=== PATIENT | male | born 1990 | race African-American/Black ===

== ENCOUNTER 2016-10-23 18:04 | Emergency (ER) | payer MEDICAID, OTHER ==
[~2016-10-23] VITALS: Ht 165.1 cm; Wt 79.5 kg
[2016-10-23 18:47] VITALS: Ht 165.1 cm; Wt 79.5 kg
[2016-10-23] MEDS ORDERED: ONDANSETRON (ODT) 4 MG TAB ODT STA (21:02)
--- NOTE | 2016-10-23 21:12 | ERD ---
ER Documentation Chief Complaint Date/Time DATE: 10/23/16 TIME: 21:10 Chief Complaint AP X1 DAY +NAUSEA, DENIES VOMITING, DIARRHEA. HPI This a 25-year-old male who presents the emergency department today with his fiance complaining of abdominal pain. Patient states he was at work when his pain started. 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 States he has not taken any medication for the pain. States he has had some nausea but no vomiting. Harley states that her daughter was sick and thinks that he "may have passed on her sickness to him" denies any sore throat, testicular pain, diarrhea. ROS All systems reviewed and are negative except as per history of present illness. Medications Home Meds Active Scripts Ibuprofen* (Motrin*) 600 Mg Tab, 600 MG PO Q6, #30 TAB Prov:LINDA PATEL PA-C 10/23/16 Hydrocodone/Acetaminophen ([place] 5-325 Tablet) 1 Each Tablet, 1 TAB PO Q6H Y for PAIN, #10 TAB Prov:LINDA PATEL PA-C 10/23/16 Ondansetron Hcl* (Zofran*) 4 Mg Tablet, 4 MG PO Q6H for NAUSEA AND/OR VOMITING, #30 TAB Prov:LINDA PATEL PA-C 10/23/16 Physical Exam Vitals Vital Signs Date Time Temp Pulse Resp B/P Pulse Ox O2 Delivery O2 Flow Rate FiO2 10/23/16 18:47 97.8 59 18 129/75 100 Physical Exam Const: No acute distress Head: Atraumatic Eyes: Normal Conjunctiva ENT: Normal External Ears, Nose and Mouth. Neck: Full range of motion..~ No meningismus. Resp: Clear to auscultation bilaterally Cardio: Regular rate and rhythm, no murmurs Abd: Soft, diffuse abdominal pain non distended. Normal bowel sounds. No specific tenderness at McBurney Skin: No petechiae or rashes Back: No midline or flank tenderness Ext: No cyanosis, or edema Neur: Awake and alert Psych: Normal Mood and Affect Result Diagram: 10/23/16211910/23/162119 Results 24 hrs Laboratory Tests Test 10/23/16 21:20 10/23/16 21:56 White Blood Count 7.410^3/ul Red Blood Count 5.1110^6/ul Hemoglobin 15.8g/dl Hematocrit 46.5% Mean Corpuscular Volume 91.0fl Mean Corpuscular Hemoglobin 30.9pg Mean Corpuscular Hemoglobin Concent 34.0g/dl Red Cell Distribution Width 12.9% Platelet Count 47050^3/UL Mean Platelet Volume 9.1fl Neutrophils % 87.5% Lymphocytes % 10.7% Monocytes % 1.6% Eosinophils % 0.0% Basophils % 0.1% Nucleated Red Blood Cells % 0.0/100WBC Neutrophils # 6.510^3/ul Lymphocytes # 0.810^3/ul Monocytes # 0.110^3/ul Eosinophils # 0.010^3/ul Basophils # 0.010^3/ul Nucleated Red Blood Cells # 0.010^3/ul Sodium Level 142mmol/L Potassium Level 4.8mmol/L Chloride Level 101mmol/L Carbon Dioxide Level 27mmol/L Anion Gap 19 Blood Urea Nitrogen 19mg/dl Creatinine 1.18mg/dl Glucose Level 124mg/dl Calcium Level 10.6mg/dl Total Bilirubin 1.0mg/dl Direct Bilirubin 0.00mg/dl Indirect Bilirubin 1.0mg/dl Aspartate Amino Transf (AST/SGOT) 41IU/L Alanine Aminotransferase (ALT/SGPT) 45IU/L Alkaline Phosphatase 99IU/L Total Protein 8.8g/dl Albumin 5.3g/dl Globulin 3.50g/dl Albumin/Globulin Ratio 1.51 Lipase 61U/L Bedside Urine pH (LAB) 5.5 Bedside Urine Protein (LAB) 1+ Bedside Urine Glucose (UA) Negative Bedside Urine Ketones (LAB) 3+ Bedside Urine Blood 1+ Bedside Urine Nitrite (LAB) Negative Bedside Urine Leukocyte Esterase (L Negative Current Medications Medications (Trade) Dose Ordered Sig/Thiago Route PRN Reason Start Time Stop Time Status Last Admin Dose Admin Acetaminophen/ Hydrocodone Bitart ([place] (5/325)) 1 tab ONCE ONCE PO 10/23/16 21:30 10/23/16 21:31 DC 10/23/16 21:24 Ondansetron HCl (Zofran Odt) 4 mg ONCE STAT ODT 10/23/16 21:02 10/23/16 21:04 DC 10/23/16 21:23 DIAGNOSTIC IMAGING REPORT Patient: DIDIER GUILLORY : 1990 Age: 25 Sex: M MR #: [id number] [facility] #: [id number] DOS: 10/23/162101 Ordering MD: LINDA PATEL PA-C Location: [facility] Room/Bed: PROCEDURE: CT scan of the abdomen and pelvis without IV contrast. CLINICAL INDICATION: Lower abdominal pain. TECHNIQUE: Thin section axial, coronal and sagittal images were performed through the abdomen and pelvis without contrast. Radiation Dose: CTDI: 7.4 and DLP: 364 One or more of the following dose reduction techniques were used: - Automated exposure control. - Adjustment of the mA and/or kV according to patient size. Use of iterative reconstruction technique. COMPARISON: Chest x-ray 07/28/2016 06:18 a.m. FINDINGS: Soft tissues: Normal.. Lungs and pleural spaces: The lungs are hyperinflated. The pulmonary vasculature is normal. No pulmonary nodule or infiltrate is identified. No pleural effusion is present. Heart: Normal. The liver, common bile duct and gallbladder: The liver is mildly enlarged measuring 15.6 cm AP. No hepatic mass or intrahepatic biliary ductal dilatation is identified. The gallbladder and gallbladder wall are normal. Gastrointestinal: The stomach is distended with fluid and particulate matter. Small bowel loops have a normal caliber. There is scattered fecal material in the colon. The appendix is not visualized. Evaluation of the bowel is limited due to lack of body fat, oral contrast and IV contrast. Pancreas: Normal. Kidneys, bladder and adrenal glands : Normal. Spleen: Normal. Lymph nodes: Normal. Reproductive system and pelvis : Normal. Bony elements: There are osteophytes in the lower thoracic spine. There is disk space narrowing at T12-L1 with large ventral osteophyte off the inferior endplate of T12. There is dorsal disk space narrowing at L4-5 with a 5.5 mm AP central disk protrusion. There is dorsal disk space narrowing at L5-S1. There is a mild levoscoliosis of the thoracolumbar junction. Vasculature: Normal. IMPRESSION: 1. Liver measures 15.6 cm AP. 2. Mild levoscoliosis of the thoracolumbar junction with disk space narrowing associated with a central disk protrusion measuring 4.6 mm AP at L4-5. 3. Somewhat limited evaluation due to lack of body fat as well as oral and IV contrast. 4. Otherwise, unremarkable CT scan of the abdomen pelvis without IV contrast. RPTAT:AAJJ Fran Gregorio Physician Date Time Electronically viewed and signed by Fran Gregorio Physician on 10/23/2016 21:49 JM/ CC: LINDA PATEL PA-C Procedures/MDM This a 25-year-old male who presents to the emergency department today complaining of abdominal pain and nausea. On physical exam patient has diffuse abdominal pain and was unable to localize where the majority of his pain was. This is the patient's first visit to the emergency department. I did obtain laboratory work as well as imaging. Laboratory work shows no elevated white blood cell count. He is not anemic. Platelets are within normal limits. Electrolytes are within normal limits. Glucose within normal limits. Liver function is within normal limits. Lipase within normal limits. UA shows 1+ blood. Negative leukocyte esterase negative nitrite CT abdomen pelvis noncontrast shows the liver measuring 15.6 cm. Otherwise unremarkable gallbladder and common bile duct. There is mild levoscoliosis of the thoracic lumbar junction with disc space narrowing and central disc protrusion at L4 and 5. Otherwise unremarkable CT scan. Stomach is distended with fluid and particulate matter. There is scattered fecal material in the colon. The appendix is not visualized. Patient has abdominal pain of uncertain etiology. I discussed the patient with Dr. Cotton, and he recommended that the urine be sent for culture and the patient's positive hematuria. I also sent the urine for gonorrhea and chlamydia. Low suspicion for acute surgical abdomen at this time. Patient was given [place] and Zofran here in the emergency department and reported feeling better.. Patient given a prescription for short course of [place] and Zofran and Motrin for home At this time the patient is stable for discharge and outpatient management. Patient should follow up with their PCP in the next 1-2 days. They may return to the emergency department sooner for any persistent or worsening of symptoms. Patient understood and agreed with the plan. Departure Diagnosis: Primary Impression: Abdominal pain Abdominal location: generalized Qualified Code: R10.84 - Generalized abdominal pain Condition: Fair LINDA PATEL PA-C October 23, 2016 21:12
[2016-10-23] MEDS ORDERED: HYDROCODONE/APAP (5/325) TAB PO ONE (21:30)
[2016-10-23 21:37] LABS: ADD SCAN DIFF NO
[2016-10-23 21:39] LABS: BASOPHILS % 0.1 % (0.0-2.0); HEMATOCRIT 46.5 % (42.0-52.0); HEMOGLOBIN 15.8 g/dl (14.0-18.0); LYMPHOCYTES # 0.8 10^3/ul (0.8-2.9); LYMPHOCYTES % 10.7 % (15.0-51.0); MEAN CORPUSCULAR HEMOGLOBIN 30.9 pg (29.0-33.0); MEAN PLATELET VOLUME 9.1 fl (7.4-10.4); MONOCYTE # 0.1 10^3/ul (0.3-0.9); MONOCYTES % 1.6 % (0.0-11.0); NEUTROPHIL # 6.5 10^3/ul (1.6-7.5); NEUTROPHILS % 87.5 % (39.0-77.0); PLATELET COUNT 335 10^3/UL (140-415); RED BLOOD COUNT 5.11 10^6/ul (4.70-6.10); RED CELL DISTRIBUTION WIDTH 12.9 % (11.5-14.5); WHITE BLOOD COUNT 7.4 10^3/ul (4.8-10.8)
[2016-10-23 21:50] LABS: ALBUMIN 5.3 g/dl (3.3-4.9)
--- NOTE | 2016-10-23 21:50 | RADRPT ---
PROCEDURE: CT scan of the abdomen and pelvis without IV contrast. CLINICAL INDICATION: Lower abdominal pain. TECHNIQUE: Thin section axial, coronal and sagittal images were performed through the abdomen and pelvis without contrast. Radiation Dose: CTDI: 7.4 and DLP: 364 One or more of the following dose reduction techniques were used: - Automated exposure control. - Adjustment of the mA and/or kV according to patient size. Use of iterative reconstruction technique. COMPARISON: Chest x-ray 07/28/2016 06:18 a.m. FINDINGS: Soft tissues: Normal.. Lungs and pleural spaces: The lungs are hyperinflated. The pulmonary vasculature is normal. No pul monary nodule or infiltrate is identified. No pleural effusion is present. Heart: Normal. The liver, common bile duct and gallbladder: The liver is mildly enlarged measuring 15.6 cm AP. No hepatic mass or intrahepatic biliary ductal dilatation is identified. The gallbladder and gallbladd er wall are normal. Gastrointestinal: The stomach is distended with fluid and particulate matter. Small bowel loops have a normal caliber . There is scattered fecal material in the colon. The appendix is not visualized. Evaluation of the bowel is limited due to lack of body fat, oral contrast and IV contrast. Pancreas: Normal. Kidneys, bladder and adrenal glands : Normal. Spleen: Normal. Lymph nodes: Normal. Reproductive system and pelvis : Normal. Bony elements: There are osteophytes in the lower thoracic spine. There is disk space narrowing at T12-L1 with large ventral osteophyte off the inferior endplate of T12. There is dorsal disk space n arrowing at L4-5 with a 5.5 mm AP central disk protrusion. There is dorsal disk space narrowing at L5-S1. There is a mild levoscoliosis of the thoracolumbar junction. Vasculature: Normal. IMPRESSION: 1. Liver measures 15.6 cm AP. 2. Mild levoscoliosis of the thoracolumbar junction with disk space narrowing associated with a nikita tral disk protrusion measuring 4.6 mm AP at L4-5. 3. Somewhat limited evaluation due to lack of body fat as well as oral and IV contrast. 4. Otherwise, unremarkable CT scan of the abdomen pelvis without IV contrast. RPTAT:AAJJ Fran Darline, Physician Date Time Electronically viewed and signed by Fran Gregorio Physician on 10/23/2016 21:49 JM/
[2016-10-23 21:51] LABS: POTASSIUM 4.8 mmol/L (3.5-5.1)
[2016-10-23 21:53] LABS: ALBUMIN/GLOBULIN RATIO 1.51; CREATININE 1.18 mg/dl (0.61-1.24); TOTAL PROTEIN 8.8 g/dl (6.1-8.1)
[2016-10-23 21:54] LABS: CALCIUM 10.6 mg/dl (8.4-10.2)
[2016-10-23 21:56] LABS: URINE BLOOD (Dip) POC 1+ (NEGATIVE)
[2016-10-23] MEDS ORDERED: HYDR-906 PO (22:48)
[2016-10-23] MEDS ORDERED: ONDA4TAB8 PO (22:48)
[2016-10-23] MEDS ORDERED: IBUP-1542 PO (22:49)
[2016-10-23 23:04] VITALS: BP 134/62; PULSE 55; RESP 16
== END 2016-10-23 23:05 | disposition home or self-care (01) ==
LOC: FTE 18:04
DX: R10.84 Generalized abdominal pain (principal); R11.0 Nausea
CPT/HCPCS: 74176; 80053; 81003; 83690; 85025; Z7610

== ENCOUNTER 2016-10-27 04:23 | Emergency (ER) | payer MEDICAID ==
[~2016-10-27] VITALS: Ht 175.3 cm; Wt 77.3 kg
[~2016-10-27 04:23] MED LIST: HYDR-906 PO; IBUP-1542 PO; ONDA4TAB8 PO
[2016-10-27 04:30] VITALS: Ht 175.3 cm; Wt 77.3 kg
[2016-10-27] MEDS ORDERED: IBUPROFEN 600 MG TAB PO ONE (06:30)
--- NOTE | 2016-10-27 06:38 | ERD ---
ER Documentation Chief Complaint Date/Time DATE: 10/27/16 TIME: 06:36 Chief Complaint ABD PAIN X 1 WEEK WITHOUT N/V, RECENTLY SEEN HERE AND DX ENLARGED LIVER HPI This is a 25-year-old male presents to the ER with abdominal pain for the last week. Abdominal pain is located in the right upper quadrant. He was seen here recently and diagnosed with an enlarged liver. Patient denies any nausea vomiting or diarrhea. Abdominal pain is sharp and constant in nature. Patient was given medication however he did not take medication because he does not like to take pain medication. Patient has not had any fevers or chills. He denies any chest pain or shortness of breath. ROS 12 point review of systems was done, all negative except per HPI. Medications Home Meds Active Scripts Ibuprofen* (Motrin*) 600 Mg Tab, 600 MG PO Q6, #30 TAB Prov:ALDO WATSON 10/27/16 Ibuprofen* (Motrin*) 600 Mg Tab, 600 MG PO Q6, #30 TAB Prov:LINDA PATEL PA-C 10/23/16 Hydrocodone/Acetaminophen ([place] 5-325 Tablet) 1 Each Tablet, 1 TAB PO Q6H Y for PAIN, #10 TAB Prov:LINDA PATEL PA-C 10/23/16 Ondansetron Hcl* (Zofran*) 4 Mg Tablet, 4 MG PO Q6H for NAUSEA AND/OR VOMITING, #30 TAB Prov:LINDA PATEL PA-C 10/23/16 PMhx/Soc Medical and Surgical Hx: pt denies Medical Hx, pt denies Surgical Hx Hx Alcohol Use: No Hx Substance Use: No Hx Tobacco Use: No Smoking Status: Never smoker Physical Exam Vitals Vital Signs Date Time Temp Pulse Resp B/P Pulse Ox O2 Delivery O2 Flow Rate FiO2 10/27/16 04:30 97.1 58 18 144/89 100 Physical Exam GENERAL: The patient is well developed and appropriate for usual state of health , in no apparent distress. HEENT: Atraumatic. CHEST: Clear to auscultation bilaterally. There are no rales, wheezes or rhonchi. HEART: Regular rate and rhythm. No murmurs, clicks, rubs or gallops. ABDOMEN: Soft, nondistended. Tender to palpation in the right upper quadrant. Good bowel sounds. No rebound or guarding. No gross peritonitis. No gross organomegaly or masses. No Alvarado sign or McBurney point tenderness. No pulsatile masses. BACK: No midline or flank tenderness. NEURO: Alert and oriented. SKIN: The skin is warm and dry. Result Diagram: 10/27/16 0642 10/27/16 0642 Results 24 hrs Laboratory Tests Test 10/27/16 06:42 10/27/16 06:45 White Blood Count 6.910^3/ul Red Blood Count 5.4210^6/ul Hemoglobin 16.7g/dl Hematocrit 48.0% Mean Corpuscular Volume 88.6fl Mean Corpuscular Hemoglobin 30.8pg Mean Corpuscular Hemoglobin Concent 34.8g/dl Red Cell Distribution Width 12.8% Platelet Count 65706^3/UL Mean Platelet Volume 9.2fl Neutrophils % 65.4% Lymphocytes % 28.0% Monocytes % 4.6% Eosinophils % 1.2% Basophils % 0.7% Nucleated Red Blood Cells % 0.0/100WBC Neutrophils # 4.510^3/ul Lymphocytes # 1.910^3/ul Monocytes # 0.310^3/ul Eosinophils # 0.110^3/ul Basophils # 0.110^3/ul Nucleated Red Blood Cells # 0.010^3/ul Sodium Level 137mmol/L Potassium Level 3.7mmol/L Chloride Level 102mmol/L Carbon Dioxide Level 26mmol/L Anion Gap 13 Blood Urea Nitrogen 23mg/dl Creatinine 1.35mg/dl Glucose Level 90mg/dl Calcium Level 10.0mg/dl Total Bilirubin 1.3mg/dl Direct Bilirubin 0.00mg/dl Indirect Bilirubin 1.3mg/dl Aspartate Amino Transf (AST/SGOT) 40IU/L Alanine Aminotransferase (ALT/SGPT) 44IU/L Alkaline Phosphatase 103IU/L Total Protein 8.1g/dl Albumin 4.8g/dl Globulin 3.30g/dl Albumin/Globulin Ratio 1.45 Lipase 118U/L Urine Color LT. YELLOW Urine Clarity CLEAR Urine pH 5.5 Urine Specific [place] 1.025 Urine Ketones 15 Urine Nitrite NEGATIVE Urine Bilirubin NEGATIVE Urine Urobilinogen 0.2 E.U./dL Urine Leukocyte Esterase NEGATIVE Urine Hemoglobin NEGATIVE Urine Glucose NEGATIVE% Urine Total Protein NEGATIVE Current Medications Medications (Trade) Dose Ordered Sig/Thiago Route PRN Reason Start Time Stop Time Status Last Admin Dose Admin Ibuprofen (Motrin) 600 mg ONCE ONCE PO 10/27/16 06:30 10/27/16 06:31 DC 10/27/16 06:37 Procedures/MDM Differential Diagnosis: GERD, gastritis, peptic ulcer disease, pancreatitis, cholecystitis, choledocholithiasis, biliary colic, cholangitis, [id number] , ACS/NM, Pnuemonia: This is a 25-year-old male presents to the ER with right upper quadrant pain that is been going on for the last week. Patient was seen here on October 23, and extensively worked up. At that time there was nothing acute. Today gallbladder ultrasound was done and was also normal. Patient stated he had not tried any of the medication because he does not like pain medication. Advised patient to try pain medication. Patient is afebrile and well-appearing. His abdominal exam was not very impressive I doubt acute abdomen at this time. Patient will be sent home with ibuprofen. Needs to follow-up with his primary care doctor within 1-2 days or return to ER sooner if symptoms worsen. My medical decision making was shared with the patient he understands and agrees with my plan. Departure Diagnosis: Primary Impression: Abdominal pain Condition: Stable ALDO WATSON October 27, 2016 06:38
--- NOTE | 2016-10-27 07:11 | RADRPT ---
PROCEDURE: US Abdomen (right upper quadrant). CLINICAL INDICATION: Abdominal pain. TECHNIQUE: Multiple real-time longitudinal and transverse images of the right upper quadrant of th e abdomen were acquired utilizing a curved array transducer. Images were reviewed on a high-resoluti on PACS workstation. COMPARISON: None FINDINGS: The liver is normal in size and demonstrates normal echogenicity. No focal intrahepatic mass is id entified. The gallbladder is normal in appearance. There is no pericholecystic fluid or gallbladde r wall thickening. No intra or extrahepatic biliary dilatation is seen. The common bile duct measur es 3.4 mm in maximal dimension. The portal and hepatic veins are patent demonstrating normal directi onal flow. The visualized portions of the pancreas are unremarkable with obscuration of the tail of the pancreas. No free fluid is identified. The right kidney measures 9.7 cm in length. There is normal echogenicity within the right kidney. There is no perinephric fluid collection. No hydronephrosis, mass, or calculus is seen. IMPRESSION: 1. Unremarkable right upper quadrant ultrasound. RPTAT: .Sugar Lock MD, Date Time Electronically viewed and signed by .Sugar Lock MD, on 10/27/2016 07:10 .G/
[2016-10-27 07:18] LABS: ADD SCAN DIFF NO
[2016-10-27 07:30] LABS: BASOPHIL # 0.1 10^3/ul (0.0-0.1); BASOPHILS % 0.7 % (0.0-2.0); EOSINOPHILS # 0.1 10^3/ul (0.0-0.5); EOSINOPHILS % 1.2 % (0.0-7.0); HEMOGLOBIN 16.7 g/dl (14.0-18.0); LYMPHOCYTES # 1.9 10^3/ul (0.8-2.9); MEAN CORPUSCULAR HEMOGLOBIN 30.8 pg (29.0-33.0); MEAN CORPUSCULAR HGB CONC 34.8 g/dl (32.0-37.0); MEAN CORPUSCULAR VOLUME 88.6 fl (82.0-101.0); MEAN PLATELET VOLUME 9.2 fl (7.4-10.4); MONOCYTE # 0.3 10^3/ul (0.3-0.9); MONOCYTES % 4.6 % (0.0-11.0); NEUTROPHIL # 4.5 10^3/ul (1.6-7.5); NEUTROPHILS % 65.4 % (39.0-77.0); PLATELET COUNT 311 10^3/UL (140-415); RED BLOOD COUNT 5.42 10^6/ul (4.70-6.10); RED CELL DISTRIBUTION WIDTH 12.8 % (11.5-14.5); WHITE BLOOD COUNT 6.9 10^3/ul (4.8-10.8)
[2016-10-27 07:48] LABS: ADD UMIC NO; URINE BILIRUBIN (Dip) NEGATIVE (NEGATIVE); URINE BLOOD (Dip) NEGATIVE (NEGATIVE); URINE COLOR LT. YELLOW (YELLOW); URINE GLUCOSE (Dip) NEGATIVE (NEGATIVE); URINE KETONES (Dip) 15 (NEGATIVE); URINE LEUKOCYTE ESTERASE (Dip) NEGATIVE (NEGATIVE); URINE NITRITE (Dip) NEGATIVE (NEGATIVE); URINE TOTAL PROTEIN (Dip) NEGATIVE (NEGATIVE); URINE UROBILINOGEN (Dip) 0.2 E.U./dL (0.1-1.0)
[2016-10-27 07:51] LABS: ALBUMIN 4.8 g/dl (3.3-4.9); ALBUMIN/GLOBULIN RATIO 1.45; BILIRUBIN,INDIRECT 1.3 mg/dl (0-1.1); BILIRUBIN,TOTAL 1.3 mg/dl (0.2-1.3); CREATININE 1.35 mg/dl (0.61-1.24); POTASSIUM 3.7 mmol/L (3.5-5.1); TOTAL PROTEIN 8.1 g/dl (6.1-8.1)
[2016-10-27] MEDS ORDERED: IBUP-1542 PO (08:10)
== END 2016-10-27 08:24 | disposition home or self-care (01) ==
LOC: FTE 04:23
DX: R10.11 Right upper quadrant pain (principal)
CPT/HCPCS: 36415; 76705; 80053; 81003; 83690; 85025; Z7502; Z7610